=== PATIENT | male | born 1960 | race Caucasian/White ===

== ENCOUNTER 2017-01-08 01:01 | Emergency (ER) | payer OTHER ==
--- NOTE | ~2017-01-08 | CR172 ---
[facility] A Service of [facility] RADIOLOGY TEXT RESULTS PATIENT: RISA ARTHUR LOCATION: SED : 56 UNIT #: [id number] AGE: [address]: Viktor Villegas MD SEX: M ORDER DR: [id number] [place] [id number] E MR#: [id number] Acc #: [id number] NAME: RISA ARTHUR : 1960 SEX: M STUDY DATE/TIME: 01/08/2017 2:04 UNIT: SED ROOM: STUDY DESCRIPTION: CR Knee 3 Views Lt Attending Physician: Viktor Villegas M.D. Ordering Physician: Viktor Villegas M.D. Primary Care Physician: Sathya Rob D.O. MEDICAL IMAGING REPORT This report is preliminary unless electronic signature is present. EXAM Left knee series INDICATION Left knee pain today. PROCEDURE 3 views left knee. COMPARISON None. FINDINGS No acute fracture or dislocation. No joint effusion. IMPRESSION No acute findings. Dictated by... Travis Villavicencio M.D. THIS IS AN ELECTRONICALLY VERIFIED REPORT Travis Villavicencio M.D. at 01/08/2017 10:09 PM IFEANYI/darius TD: 01/08/2017 10:02 JOB #: [id number] MEDICAL IMAGING REPORT Page 1 of 1
[~2017-01-08 01:01] MED LIST: IBUPROFEN800 MG PO; KCL PO; KURVELO1 EACH PO; TESSALON PERLE100 M1 PO; ZITHROMAX PO
== END 2017-01-08 03:08 | disposition home or self-care (01) ==
LOC: SED 01:01
DX: M25.562 Pain in left knee (principal); F17.200 Nicotine dependence, unspecified, uncomplicated; Z79.899 Other long term (current) drug therapy
CPT/HCPCS: 73562; 99283